=== PATIENT | female | born 1940 | race Caucasian/White ===

== ENCOUNTER 2017-03-31 00:06 | Inpatient (IN) | payer MEDICARE, MEDICAID, SELFPAY ==
[2017-04-02 19:32] VITALS: BMI 20.6
[2017-04-03] VITALS (8 sets, daily range): BP systolic 133–152; BP diastolic 66–82; PULSE 70–83; RESP 16–32; TEMP 37–37.4; O2SAT 93–96
--- NOTE | 2017-04-03 04:05 | PC.NURSE ---
PT HAS SLEPT INTERMITTENTLY. TURN Q 2 HOURS. NO SKIN ISSUES NOTED. PT ALERT, NON VERBAL.
[2017-04-03 08:16] LABS: Anion Gap 13.7 mEq/L (5-15); Blood Urea Nitrogen 11 mg/dL (7-18); Carbon Dioxide 18 mmol/L (21.0-32.0); Creatinine Clearance Estimated 41 mg/ml (0-300); Creatinine,Serum 0.86 mg/dL (0.55-1.02); Estimated Glomerular Filt Rate > 60 ml/min (>60); GFR (African American) > 60 ML/MIN (>60); Glucose 168 mg/dL (74-106); Potassium 3.7 mmoL/L (3.5-5.1)
[2017-04-03 08:21] LABS: Chloride 123 mmol/L (98-107); Sodium 151 mmol/L (136-145)
--- NOTE | 2017-04-03 11:07 | PC.NURSE ---
PT IS RESTING IN BED, NO COMPLAINTS OF DISCOMFORT, TURNED AND REPOSITIONED Q2H, PT DID NOT WANT TO EAT MUCH BREAKFAST, PT TOOK ALL HER MORNING MEDS CRUSHED THIS MORNING, PT IS ALERT TO SELF ONLY. LUNG SOUNDS CLEAR, BOWEL SOUNDS NORMAL. IT WAS REPORTED TO PHYSICIAN THIS MORNING ABOUT PT'S NA STILL BEING ELEVATED. PHYSICIAN STATED IT IS IMPROVING SO CONTINUE CURRENT CARE. WILL CONTINUE TO MONITOR.
--- NOTE | 2017-04-03 15:21 | DIET.NUTRFU ---
Pt is a feeder. PO intakes have been 10% for bkfst and lunch today. She is on a pureed diet per Speech therapy recommendations. Wt 120 lbs appears to be a stated wt. Hypernatremia is improving slowly. Will add Ensure supplements to meals. Requested weight from nursing.
--- NOTE | 2017-04-03 20:04 | HMH.ACPN ---
Internal Medicine - PN: Subj *Date: 04/03/17 *Time: 20:04 Interval history: pt was seen this pm and had no new c/o Exam Vital signs and Labs for Last 24 Hours: Temp Pulse Resp BP Pulse Ox 99.4 F 78 18 143/74 93 L 04/03/17 17:44 04/03/17 17:44 04/03/17 17:44 04/03/17 17:44 04/03/17 17:44 Short CBC 03/31/17 04/01/17 Range/Units 05:25 06:39 WBC 7.8 D 6.2 (4.8 - 10.8) K/MM3 Hgb 10.9 L D 10.1 L (12.2 - 16.2) g/dL Hct 35.0 L 33.0 L (37.0 - 47.0) % Plt Count 122 L 129 L (142 - 424) K/mm3 BMP 03/31/17 03/31/17 03/31/17 05:30 16:10 20:59 Sodium 164 H* 166 H* 164 H* Potassium 3.3 L 3.4 L Chloride 130 H 132 H Carbon Dioxide 23 25 BUN 37 H 29 H Creatinine 1.6 H D 1.5 H Glucose 134 H 121 H Calcium 8.7 9.0 04/01/17 04/01/17 04/02/17 06:39 16:15 06:15 Sodium 161 H* 158 H* 156 H* Potassium 2.7 L* 3.1 L 3.3 L Chloride 130 H 128 H 126 H Carbon Dioxide 22 24 22 BUN 21 H D 17 13 Creatinine 1.1 H D 1.1 H 1.0 Glucose 153 H 158 H 172 H Calcium 8.5 8.3 L 8.4 L 04/03/17 06:51 Sodium 151 H* Potassium 3.7 Chloride 123 H Carbon Dioxide 18 L BUN 11 Creatinine 0.86 Glucose 168 H Calcium Urine 03/31/17 Range/Units 02:58 Urine Color YELLOW (YELLOW - ) Urine Appearance CLEAR (CLEAR - ) Urine pH 5.5 (5.0 - 8.5) Ur Specific [place] 1.020 (1.005 - 1.030) Urine Protein 1+ H (NEG - ) mg/dL I & O for Last 24 hours: Intake & Output 04/01/17 04/02/17 04/03/17 04/04/17 11:59 11:59 11:59 11:59 Intake Total 1009 / 1009 120 / 120 Output Total 850 / 850 Balance 159 / 159 120 / 120 no acute distress - *Routine HEENT Exam Head: Present: atraumatic Eye: Present: EOMI ENT: Present: mucous membranes dry - *Routine Neck Exam Present: supple. Absent: tenderness - *Routine Respiratory Exam Present: distant breath sounds - *Routine Cardiovascular Exam Present: murmur - *Routine Abdominal Exam Present: soft - *Routine Extremities Exam Absent: cyanosis - *Routine Neurological Exam Present: altered mental status Assessment and Plan (1) UTI (urinary tract infection) Current visit: Yes Status: Acute Qualifiers: Urinary tract infection type: acute cystitis Hematuria presence: without hematuria Qualified Code(s): N30.00 - Acute cystitis without hematuria Category: Medical Code(s): N39.0 - Urinary tract infection, site not specified
[2017-04-03 21:31] LABS: Anion Gap 13.7 mEq/L (5-15); Blood Urea Nitrogen 8 mg/dL (7-18); Carbon Dioxide 19 mmol/L (21.0-32.0); Creatinine Clearance Estimated 41 mg/ml (0-300); Creatinine,Serum 0.81 mg/dL (0.55-1.02); Estimated Glomerular Filt Rate > 60 ml/min (>60); GFR (African American) > 60 ML/MIN (>60); Glucose 158 mg/dL (74-106); Potassium 3.7 mmoL/L (3.5-5.1); Sodium 147 mmol/L (136-145)
[2017-04-03 21:46] LABS: Chloride 118 mmol/L (98-107)
[2017-04-04] VITALS: BP 137/78; PULSE 80; RESP 18; TEMP 36.8; O2SAT 97
[2017-04-04 04:00] VITALS: PULSE 80
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
[2017-04-04 05:31] VITALS: BP 147/77; PULSE 78; RESP 18; TEMP 38; O2SAT 100
[2017-04-04 07:30] LABS: Blood Urea Nitrogen 9 mg/dL (7-18); Carbon Dioxide 19 mmol/L (21.0-32.0); Creatinine Clearance Estimated 41 mg/ml (0-300); Creatinine,Serum 0.79 mg/dL (0.55-1.02); Estimated Glomerular Filt Rate > 60 ml/min (>60); GFR (African American) > 60 ML/MIN (>60); Glucose 153 mg/dL (74-106); Sodium 145 mmol/L (136-145)
[2017-04-04 07:57] LABS: Chloride 117 mmol/L (98-107)
[2017-04-04 08:00] VITALS: BP 144/62; PULSE 76; RESP 18; TEMP 36.9; O2SAT 96
--- NOTE | 2017-04-04 09:17 | HMH.ACPN ---
Internal Medicine - PN: Subj *Date: 04/04/17 *Time: 09:17 Interval history: pt doing better and awake Exam Vital signs and Labs for Last 24 Hours: Temp Pulse Resp BP Pulse Ox 98.4 F 76 18 144/62 96 04/04/17 08:00 04/04/17 08:00 04/04/17 08:00 04/04/17 08:00 04/04/17 08:00 BMP 04/03/17 04/04/17 20:46 07:00 Sodium 147 H 145 Potassium 3.7 4.0 Chloride 118 H 117 H Carbon Dioxide 19 L 19 L BUN 8 D 9 Creatinine 0.81 0.79 Glucose 158 H 153 H I & O for Last 24 hours: Intake & Output 04/01/17 04/02/17 04/03/17 04/04/17 11:59 11:59 11:59 11:59 Intake Total 1009 / 1009 1043.75 / 1043.75 Output Total 850 / 850 750 / 750 Balance 159 / 159 293.75 / 293.75 no acute distress - *Routine HEENT Exam Head: Present: normocephalic Eye: Present: EOMI, PERRL ENT: Present: mucous membranes dry - *Routine Respiratory Exam Present: decreased breath sounds. Absent: respiratory distress - *Routine Cardiovascular Exam Present: murmur, S4 - *Routine Abdominal Exam Present: soft - *Routine Extremities Exam Absent: calf tenderness - *Routine Skin Exam Present: intact - *Routine Neurological Exam Present: alert. Absent: motor deficit Assessment and Plan (1) UTI (urinary tract infection) Current visit: Yes Status: Acute Qualifiers: Urinary tract infection type: acute cystitis Hematuria presence: without hematuria Qualified Code(s): N30.00 - Acute cystitis without hematuria Category: Medical Code(s): N39.0 - Urinary tract infection, site not specified (2) Hypernatremia Current visit: Yes Status: Acute Category: Medical Code(s): E87.0 - Hyperosmolality and hypernatremia
--- NOTE | 2017-04-04 09:28 | HMH.DCSUM ---
General - General Admission date: 03/31/17 Discharge date: 04/04/17 HPI HPI: this wf who was [facility] with change in mental status and was noted in ed to have abn u/a and labs - pt was admitted with ivf and abx Objective Vital signs: Temp Pulse Resp BP Pulse Ox 98.4 F 76 18 144/62 96 04/04/17 08:00 04/04/17 08:00 04/04/17 08:00 04/04/17 08:00 04/04/17 08:00 no acute distress - *Routine HEENT Exam Head: Present: normocephalic Eye: Present: PERRL ENT: Present: mucous membranes dry - *Routine Neck Exam Present: supple - *Routine Respiratory Exam Present: decreased breath sounds - *Routine Cardiovascular Exam Present: murmur, S4 - *Routine Abdominal Exam Present: soft - *Routine Extremities Exam Absent: calf tenderness - *Routine Skin Exam Present: intact - *Routine Neurological Exam Present: alert, oriented X3 Hospital Course Hospital Course: pt with improvement with labs and ua showed uti which responded to rocphen and pt [facility] to [facility] with continued iv abx Results Labs on day of discharge: Labs from last 24 hours 04/04/17 04/03/17 07:00 20:46 Sodium 145 147 H Potassium 4.0 3.7 Chloride 117 H 118 H Carbon Dioxide 19 L 19 L Anion Gap 13.0 13.7 BUN 9 8 D Creatinine 0.79 0.81 Estimated Creat Clear 41 41 Estimated GFR > 60 > 60 Est GFR ( Amer) > 60 > 60 Glucose 153 H 158 H DS: Diagnosis - Discharge Diagnosis (1) UTI (urinary tract infection) Status: Acute (2) Hypernatremia Status: Acute Meds Home Medications Medication Instructions Recorded Confirmed Type Acetaminophen 500 mg PO TID 04/02/17 04/02/17 History Alendronate Sodium [Fosamax] 70 mg PO WEEKLY 04/02/17 04/02/17 History Ascorbic Acid 500 mg PO DAILY 04/02/17 04/02/17 History Aspirin [Aspirin 81mg chewable 81 mg PO MOWEFR 04/02/17 04/02/17 History tab] Bisoprolol Fumarate [Zebeta 5mg 2.5 mg PO DAILY 04/02/17 04/02/17 History tablet] Butalb/Acetaminophen/Caffeine 1 tab PO Q6HP PRN 04/02/17 04/02/17 History [Fiorcet Tablet] Cholecalciferol (Vitamin D3) 1,000 unit PO DAILY 04/02/17 04/02/17 History [Vitamin D3] Donepezil HCl [Aricept 10mg tablet] 10 mg PO HS 04/02/17 04/02/17 History Famotidine [Pepcid] 20 mg PO HS 04/02/17 04/02/17 History Gemfibrozil 600 mg PO BID 04/02/17 04/02/17 History LORazepam [Ativan 0.5mg tablet] 0.5 mg PO QID 04/02/17 04/02/17 History Lactulose [Lactulose 10gm/15ml 10 gm PO TIDP PRN 04/02/17 04/02/17 History Oral Soln] Levothyroxine Sodium 125 mcg PO DAILY 04/02/17 04/02/17 History [Levothyroxine 125mcg (0.125mg) Tab] Loperamide HCl [Imodium A-D] 2 mg PO Q6HP PRN 04/02/17 04/02/17 History Lutein 10 mg PO DAILY 04/02/17 04/02/17 History Mag Carb/Aluminum Hydrox/Algin 30 ml PO Q4HP PRN 04/02/17 04/02/17 History [Gaviscon Liquid] Melatonin 3 mg PO HS 04/02/17 04/02/17 History Memantine HCl [Memantine 10mg 10 mg PO BID 04/02/17 04/02/17 History Tablet] Mineral Oil/Petrolatum,White 1 oin OP HS 04/02/17 04/02/17 History [Lubrifresh Pm Eye Ointment] Mirtazapine [Remeron] 15 mg PO HS 04/02/17 04/02/17 History Sennosides [Senna] 8.6 mg PO BID 04/02/17 04/02/17 History Sertraline HCl [Zoloft] 150 mg PO DAILY 04/02/17 04/02/17 History Tramadol HCl [Ultram 50mg 50 mg PO BID 04/02/17 04/02/17 History tablet] guaiFENesin [Robafen] 10 ml PO Q4HP PRN 04/02/17 04/02/17 History risperiDONE [Risperdal 0.5mg 0.5 mg PO 1400 04/02/17 04/02/17 History tablet] risperiDONE [Risperdal 0.5mg 0.5 mg PO DAILY 04/02/17 04/02/17 History tablet] risperiDONE [Risperdal] 2 mg PO HS 04/02/17 04/02/17 History Allergies Allergy/AdvReac Type Severity Reaction Status Date / Time codeine Allergy Unknown UNKNOWN Verified 04/03/17 02:24 diphenhydramine Allergy Unknown UNKNOWN Verified 04/03/17 02:24 [From Benadryl] Penicillins Allergy Unknown UNKNOWN Verified 04/03/17 02:24
--- NOTE | 2017-04-04 09:31 | P.DS_ITS ---
General - General Admission date: 03/31/17 Discharge date: 04/04/17 HPI HPI: this wf who was [facility] from [facility] with change in mental status and was noted in ed to have abn u/a and labs - pt was admitted with ivf and abx Objective Vital signs: Temp Pulse Resp BP Pulse Ox 98.4 F 76 18 144/62 96 04/04/17 08:00 04/04/17 08:00 04/04/17 08:00 04/04/17 08:00 04/04/17 08:00 no acute distress - *Routine HEENT Exam Head: Present: normocephalic Eye: Present: PERRL ENT: Present: mucous membranes dry - *Routine Neck Exam Present: supple - *Routine Respiratory Exam Present: decreased breath sounds - *Routine Cardiovascular Exam Present: murmur, S4 - *Routine Abdominal Exam Present: soft - *Routine Extremities Exam Absent: calf tenderness - *Routine Skin Exam Present: intact - *Routine Neurological Exam Present: alert, oriented X3 Hospital Course Hospital Course: pt with improvement with labs and ua showed uti which responded to rocphen and pt [facility] to [facility] with continued iv abx Results Labs on day of discharge: Labs from last 24 hours 04/04/17 04/03/17 07:00 20:46 Sodium 145 147 H Potassium 4.0 3.7 Chloride 117 H 118 H Carbon Dioxide 19 L 19 L Anion Gap 13.0 13.7 BUN 9 8 D Creatinine 0.79 0.81 Estimated Creat Clear 41 41 Estimated GFR > 60 > 60 Est GFR ( Amer) > 60 > 60 Glucose 153 H 158 H DS: Diagnosis - Discharge Diagnosis (1) UTI (urinary tract infection) Status: Acute (2) Hypernatremia Status: Acute Meds Home Medications Medication Instructions Recorded Confirmed Type Acetaminophen 500 mg PO TID 04/02/17 04/02/17 History Alendronate Sodium [Fosamax] 70 mg PO WEEKLY 04/02/17 04/02/17 History Ascorbic Acid 500 mg PO DAILY 04/02/17 04/02/17 History Aspirin [Aspirin 81mg chewable 81 mg PO MOWEFR 04/02/17 04/02/17 History tab] Bisoprolol Fumarate [Zebeta 5mg 2.5 mg PO DAILY 04/02/17 04/02/17 History tablet] Butalb/Acetaminophen/Caffeine 1 tab PO Q6HP PRN 04/02/17 04/02/17 History [Fiorcet Tablet] Cholecalciferol (Vitamin D3) 1,000 unit PO DAILY 04/02/17 04/02/17 History [Vitamin D3] Donepezil HCl [Aricept 10mg tablet] 10 mg PO HS 04/02/17 04/02/17 History Famotidine [Pepcid] 20 mg PO HS 04/02/17 04/02/17 History Gemfibrozil 600 mg PO BID 04/02/17 04/02/17 History LORazepam [Ativan 0.5mg tablet] 0.5 mg PO QID 04/02/17 04/02/17 History Lactulose [Lactulose 10gm/15ml 10 gm PO TIDP PRN 04/02/17 04/02/17 History Oral Soln] Levothyroxine Sodium 125 mcg PO DAILY 04/02/17 04/02/17 History [Levothyroxine 125mcg (0.125mg) Tab] Loperamide HCl [Imodium A-D] 2 mg PO Q6HP PRN 04/02/17 04/02/17 History Lutein 10 mg PO DAILY 04/02/17 04/02/17 History Mag Carb/Aluminum Hydrox/Algin 30 ml PO Q4HP PRN 04/02/17 04/02/17 History [Gaviscon Liquid] Melatonin 3 mg PO HS 04/02/17 04/02/17 History Memantine HCl [Memantine 10mg 10 mg PO BID 04/02/17 04/02/17 History Tablet] Mineral Oil/Petrolatum,White 1 oin OP HS 04/02/17 04/02/17 History [Lubrifresh Pm Eye Ointment] Mirtazapine [Remeron]
--- NOTE | 2017-04-04 11:01 | PC.NURSE ---
10:58AM - CALL TO DR KIM REGARDING DISCHARGE ORDERS AND INFORMED THAT THIS NURSE SPOKE WITH PT'S DAUGHTER, CARLOS ENRIQUE LINCOLN, AND SHE REQUESTS PT DOES NOT RETURN TO [facility]. DR KIM REQUESTED TO CALL [facility] REGARDING DTR'S REQUEST. ALSO RECEIVED VERBAL ORDER TO REMOVE SETHI CATHETER ON DISCHARGE.
[2017-04-04 13:24] VITALS: BP 130/63; PULSE 69; RESP 18; TEMP 36.9; O2SAT 95
--- NOTE | 2017-04-04 14:22 | PC.NURSE ---
REPORT CALLED TO [facility]. SPOKE WITH ANILA LERMA DISCHARGED /C (R) HAND IV 20G INSERTED ON 04/04/2017.
--- NOTE | 2017-04-04 14:36 | PC.NURSE ---
LAYOUT FORMER REMOVED. SETHI CATHETER REMOVED PER REQUEST OF ANILA AT [facility].
--- NOTE | 2017-04-04 14:45 | CARE MANAGER ---
Received phone call from nurse (Sarah) stating that patients POLolis (Nelli Brush) has called and stated that she does not want this patient to return to [facility]. I have called and spoke with AXEL and she stated that she is just not happy with [facility] but patient has been there for two years now. I informed AXEL that patient is currently ready for discharge and she is on bedhold at [facility] and that we could not hold patient at our facility due to this situation. I have also spoke with AXEL about where she would like for patient to discharge to since there are no other LTC beds available in [place] at this time....AXEL stated that she wanted to go to [facility]. AXEL has asked if I could fax patient information to [facility]. I called and spoke with admission whom stated they do have beds available but would not have an answer for at least 24 hours and stated they would call POA once decision is made after reviewing patient information. Patient will be discharged back to [facility] AXEL Last is aware that follow up phone call from [facility] will be made once decision is made. Patient is expected to discharge this afternoon.
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
== END 2017-04-04 15:10 | DRG 690 ==
PROVIDERS: Family Medicine; Admitting Provider Internal Medicine Adolescent Medicine; Emergency Provider Emergency Medicine; Visit Provider Emergency Medicine
DX: N39.0 Urinary tract infection, site not specified (principal); E87.0 Hyperosmolality and hypernatremia; J44.9 Chronic obstructive pulmonary disease, unspecified; F03.91 Unspecified dementia, unspecified severity, with behavioral disturbance; I10 Essential (primary) hypertension; Z95.0 Presence of cardiac pacemaker; R26.2 Difficulty in walking, not elsewhere classified
CPT/HCPCS: 36415; 71010; 80048; 80053; 81001; 83605; 84295; 85025; 87040; 87070; 87086; 87088; 87186; 87275; 87276; 87430; 92610; 96361; 96365; 96367; 99285; J1956

== ENCOUNTER → 2017-04-07 12:48 | Outpatient (CLI) | payer MEDICARE, MEDICAID, SELFPAY ==
[2017-04-07 13:56] VITALS: BMI 24.3
--- NOTE | 2017-04-07 14:00 | XR_ITS ---
XR chest portable PICC plac HISTORY: ITS.REASON: PICC line placement ORDERING PHYSICIAN: Lucius Johnson MD PATIENT AGE: 76 years COMPARISON: None available FINDINGS: The cardiomediastinal silhouette and pulmonary vascularity are within normal limits. Right upper extremity PICC line has been inserted. The tip is in good position in the region of the SVC. Cardiac pacemaker device remains in place. Normal heart size. Lungs are clear of acute infiltrate with no acute bony anomalies. IMPRESSION: Good placement of PICC line.
== END ==
PROVIDERS: PCP Emergency Medicine; Visit Provider Emergency Medicine
DX: N39.0 Urinary tract infection, site not specified (principal)
CPT/HCPCS: 36569; 71045; C1751